=== PATIENT | male | born 1965 ===

== ENCOUNTER 2021-02-02 12:45 | Emergency (ER) | payer SELFPAY ==
[2021-02-02] MEDS ORDERED: levETIRAcetam 500 MG Tab PO ONE (12:49)
--- NOTE | 2021-02-02 13:08 | EDM.PDOCBH ---
ED HPI GENERAL MEDICAL PROBLEM - General Chief Complaint: Drug or Alcohol Abuse Stated Complaint: ALCOHOL WITHDRAWAL Time Seen by Provider: 02/02/21 13:06 Source of Information: Reports: Patient, RN, RN Notes Reviewed, Other (Marlys Ng) History Limitations: Reports: No Limitations - History of Present Illness INITIAL COMMENTS - FREE TEXT/NARRATIVE: Pt sent to ER from detention by [facility] for medical screening. Pt denies acute illness or injury. He has Hx of TBI, seizure disorder, alcohol, and polysubstance abuse. Pt states he has been out of his medications for several days. He is from [place]. Pt states he was at the [facility], and left with a man who brought him to [place]. Then he became from the man, and drank a lot of alcohol with some woman, then ended up in detention. Denies suicidal or homicidal thought or plan. Onset: Unknown/Unsure Location: Reports: Generalized Generalized Pain Score (Numeric/FACES): 5 - Related Data Allergies Allergy/AdvReac Type Severity Reaction Status Date / Time No Known Allergies Allergy Verified 02/02/21 13:14 Home Meds: Home Meds . [Unable to Verify Home Med List] 02/02/21 [History] Past Medical History Neurological History: Reports: Seizure Psychiatric History: Reports: Addiction Social & Family History - Family History Family Medical History: Unobtainable - Alcohol Use Alcohol Use History: Yes Alcohol Use Frequency: Binges - Recreational Drug Use Recreational Drug Use: Yes Drug Use in Last 12 Months: Yes Recreational Drug Type: Reports: Inhalants (Glues, Solvents, Aerosols), Marijuana/Hashish, Methamphetamine Recreational Drug Use Frequency: Daily - Living Situation & Occupation Living situation: Reports: Other (Homeless) Occupation: Unemployed ED ROS GENERAL - Review of Systems Review Of Systems: Comprehensive ROS is negative, except as noted in HPI. ED EXAM, BEHAVIORAL HEALTH - Physical Exam Exam: See Below Exam Limited By: No Limitations General Appearance: Alert, WD/WN, No Apparent Distress Eye Exam: Bilateral Eye: Normal Inspection Nose: Normal Inspection Throat/Mouth: Normal Inspection Head: Atraumatic, Normocephalic Neck: Normal Inspection Respiratory/Chest: No Respiratory Distress, Lungs Clear, Normal Breath Sounds, No Accessory Muscle Use, Chest Non-Tender Cardiovascular: Regular Rate, Rhythm GI/Abdominal: Normal Bowel Sounds, Soft, Non-Tender Back Exam: Normal Inspection Extremities: Normal Inspection Neurological: Alert, CN II-XII Intact, Normal Gait, No Motor/Sensory Deficits, Oriented x 3 Psychiatric: Normal Mood, Oriented, Poor Eye Contact. No: Homicidal Thoughts, Suicidal Plan, Suicidal Thoughts, Auditory Hallucinations, Visual Hallucinations Skin Exam: Warm, Dry, Intact, Normal color, No rash COURSE, BEHAVIORAL HEALTH COMP - Course Vital Signs: Last Vital Signs Temp 99.1 F 02/02/21 13:10 Pulse 103 H 02/02/21 13:10 Resp 14 02/02/21 13:10 BP 155/103 H 02/02/21 13:10 Pulse Ox 100 02/02/21 13:10 Orders, Labs, Meds: Active Orders 24 hr Category Date Time Status DRUG SCREEN URINE BIORAD [URCHEM] Stat Lab 02/02/21 13:15 Received UA W/MICROSCOPIC [URIN] Stat Lab 02/02/21 13:15 Results Laboratory Tests 02/02/21 02/02/21 02/02/21 Range/Units 13:05 13:05 13:05 WBC 6.9 (5.0-10.0) 10^3/uL RBC 5.27 (4.6-6.2) 10^6/uL Hgb 14.8 (14.0-18.0) g/dL Hct 44.4 (40.0-54.0) % MCV 84.3 (80-100) fL MCH 28.1 (27.0-34.0) pg MCHC 33.3 (33.0-35.0) g/dL Plt Count 201 (150-450) 10^3/uL Neut % (Auto) 84.2 H (42.2-75.2) % Lymph % (Auto) 9.4 L (20.5-50.1) % [place] % (Auto) 5.8 (2-8) % Eos % (Auto) 0.3 L (1.0-3.0) % Baso % (Auto) 0.3 (0.0-1.0) % Sodium 142 (136-145) mmol/L Potassium 3.8 (3.5-5.1) mmol/L Chloride 102 (98-107) mmol/L Carbon Dioxide 27 (21-32) mmol/L Anion Gap 16.8 H (7-13) mEq/L BUN 11 (7-18) mg/dL Creatinine 0.98 (0.70-1.30) mg/dL Est Cr Clr Drug Dosing TNP Estimated GFR (MDRD) > 60 BUN/Creatinine Ratio 11.2 (No establ ref range) Glucose 102 H (70-99) mg/dL Calcium 9.3 (8.5-10.1) mg/dL Magnesium 1.8 (1.8-2.4) mg/dL Total Bilirubin 1.5 H (0.2-1.0) mg/dL AST 101 H (15-37) U/L ALT 102 H (16-63) U/L Alkaline Phosphatase 72 (46-116) U/L Total Protein 8.7 H (6.4-8.2) g/dL Albumin 4.6 (3.4-5.0) g/dL Globulin 4.1 Albumin/Globulin Ratio 1.1 Urine Color (YELLOW) Urine Appearance (CLEAR) Urine pH (5.0-9.0) Ur Specific [place] (1.005-1.030) Urine Protein (NEGATIVE) Urine Glucose (UA) (NEGATIVE) Urine Ketones (NEGATIVE) Urine Occult Blood (NEGATIVE) Urine Nitrite (NEGATIVE) Urine Bilirubin (NEGATIVE) Urine Urobilinogen (0.2-1.0) mg/dL Ur Leukocyte Esterase (NEGATIVE) Salicylates < 2.8 L (2.8-20(Therapeutic)) mg/dL Acetaminophen 0 L (10-30 (Therapeutic)) ug/mL Ethyl Alcohol 3 (0) mg/dL 02/02/21 Range/Units 13:15 WBC (5.0-10.0) 10^3/uL RBC (4.6-6.2) 10^6/uL Hgb (14.0-18.0) g/dL Hct (40.0-54.0) % MCV (80-100) fL MCH (27.0-34.0) pg MCHC (33.0-35.0) g/dL Plt Count (150-450) 10^3/uL Neut % (Auto) (42.2-75.2) % Lymph % (Auto) (20.5-50.1) % [place] % (Auto) (2-8) % Eos % (Auto) (1.0-3.0) % Baso % (Auto) (0.0-1.0) % Sodium (136-145) mmol/L Potassium (3.5-5.1) mmol/L Chloride (98-107) mmol/L Carbon Dioxide (21-32) mmol/L Anion Gap (7-13) mEq/L BUN (7-18) mg/dL Creatinine (0.70-1.30) mg/dL Est Cr Clr Drug Dosing Estimated GFR (MDRD) BUN/Creatinine Ratio (No establ ref range) Glucose (70-99) mg/dL Calcium (8.5-10.1) mg/dL Magnesium (1.8-2.4) mg/dL Total Bilirubin (0.2-1.0) mg/dL AST (15-37) U/L ALT (16-63) U/L Alkaline Phosphatase (46-116) U/L Total Protein (6.4-8.2) g/dL Albumin (3.4-5.0) g/dL Globulin Albumin/Globulin Ratio Urine Color Dark yellow (YELLOW) Urine Appearance Clear (CLEAR) Urine pH 7.0 (5.0-9.0) Ur Specific [place] 1.025 (1.005-1.030) Urine Protein 100 H (NEGATIVE) Urine Glucose (UA) Negative (NEGATIVE) Urine Ketones 40 H (NEGATIVE) Urine Occult Blood Negative (NEGATIVE) Urine Nitrite Negative (NEGATIVE) Urine Bilirubin Small H (NEGATIVE) Urine Urobilinogen 4.0 H (0.2-1.0) mg/dL Ur Leukocyte Esterase Negative (NEGATIVE) Salicylates (2.8-20(Therapeutic)) mg/dL Acetaminophen (10-30 (Therapeutic)) ug/mL Ethyl Alcohol (0) mg/dL Medications Discontinued Medications Generic Name Dose Route Start Last Admin Trade Name Freq PRN Reason Stop Dose Admin Levetiracetam 1,000 mg 02/02/21 12:49 Levetiracetam 500 Mg Tab PO 02/02/21 12:50 ONETIME ONE Medical Clearance: 02/02/21 14:27 Medically clear for discharge to the [facility]. Departure - Departure Time of Disposition: 14:28 Disposition: Home, Self-Care 01 Condition: Good Clinical Impression: Seizure disorder, Alcohol abuse, Drug abuse - Discharge Information *PRESCRIPTION DRUG MONITORING PROGRAM REVIEWED*: Not Applicable *COPY OF PRESCRIPTION DRUG MONITORING REPORT IN PATIENT RACHEL: Not Applicable Instructions: Epilepsy, [id number], Substance Use Disorder and Mental Illness, Alcohol Use Disorder Forms: ED Department Discharge Additional Instructions: Rx: Keppra 1000mg Rx: Paxil 40mg Follow up in clinic next week for medication management. Sepsis Event Note (ED) - Focused Exam Vital Signs: Vital Signs Temp Pulse Resp BP Pulse Ox 02/02/21 13:10 99.1 F 103 H 14 155/103 H 100 - My Orders Last 24 Hours: My Active Orders 02/02/21 13:15 DRUG SCREEN URINE BIORAD [URCHEM] Stat UA W/MICROSCOPIC [URIN] Stat - Assessment/Plan Last 24 Hours: My Active Orders 02/02/21 13:15 DRUG SCREEN URINE BIORAD [URCHEM] Stat UA W/MICROSCOPIC [URIN] Stat
[2021-02-02 13:35] LABS: ANION GAP 16.8 mEq/L (7-13); CHLORIDE,CL 102 mmol/L (98-107); SODIUM,NA 142 mmol/L (136-145)
[2021-02-02 14:18] LABS: ACETAMINOPHEN 0 ug/mL (10-30 (Therapeutic))
== END 2021-02-02 14:20 | disposition home or self-care (01) ==
LOC: DL.ED 12:45
DX: G40.909 Epilepsy, unspecified, not intractable, without status epilepticus (principal); F10.10 Alcohol abuse, uncomplicated; F19.10 Other psychoactive substance abuse, uncomplicated
CPT/HCPCS: 36415; 80053; 80143; 80179; 80305-QW; 80307; 81001; 83735; 85025; 99283; 99284; A9270-GY

== ENCOUNTER 2021-02-07 20:30 | Emergency (ER) | payer SELFPAY ==
[~2021-02-07 20:30] MED LIST: Sodium Chloride 0.9% 1,000 ML IV ONE
[2021-02-07] MEDS ORDERED: levETIRAcetam 500 MG Tab PO ONE (20:54)
[2021-02-07 21:06] LABS: ANION GAP 21.7 mEq/L (7-13); CHLORIDE,CL 101 mmol/L (98-107); SODIUM,NA 141 mmol/L (136-145)
--- NOTE | 2021-02-07 21:33 | EDM.PDOC ---
ED HPI GENERAL MEDICAL PROBLEM - General Chief Complaint: Syncope Time Seen by Provider: 02/07/21 20:50 Source of Information: Reports: Patient, EMS History Limitations: Reports: No Limitations - History of Present Illness INITIAL COMMENTS - FREE TEXT/NARRATIVE: ED via [facility], patient found lying on side of road possible seizure. Patient reports seizure disorder has not been taking medications. Lives in Care Home in [facility]. States picked up by friend last week and drove here and left , Attempting to hitch hike way home today. Denies ETOH today, Some yesterday. Was seen in ED on 02/02 with seizure. Face/Facial Pain Score (Numeric/FACES): 8 - Related Data Allergies Allergy/AdvReac Type Severity Reaction Status Date / Time No Known Allergies Allergy Verified 02/07/21 21:48 Home Meds: Home Meds . [Unable to Verify Home Med List] 02/02/21 [History] Past Medical History Cardiovascular History: Reports: Hypertension Neurological History: Reports: Seizure, Other (See Below) Other Neuro History: TBI Psychiatric History: Reports: Addiction Social & Family History - Family History Family Medical History: Unobtainable - Caffeine Use Caffeine Use: Reports: Coffee, Soda, Tea - Living Situation & Occupation Living situation: Reports: Other (Homeless) Occupation: Unemployed ED ROS GENERAL - Review of Systems Review Of Systems: Comprehensive ROS is negative, except as noted in HPI. - Physical Exam Exam: See Below Exam Limited By: No Limitations General Appearance: Alert, No Apparent Distress, Other Eye Exam: Bilateral Eye: EOMI Ears: Normal External Exam Nose: Normal Inspection Throat/Mouth: Normal Inspection Head Exam: Atraumatic, Normocephalic Neck: Normal Inspection Respiratory/Chest: No Respiratory Distress, Lungs Clear, Normal Breath Sounds GI/Abdominal: Normal Bowel Sounds, Soft Neuro Exam (Abbreviated): Alert, Oriented, Memory Loss Recent Events. No: No Motor/Sensory Deficits, Disoriented, Slow to Respond Back Exam: Full Range of Motion Extremities: No: Limited Range of Motion Skin Exam: Warm, Dry, Intact, Other (Sunburn to face upper arms) Course - Vital Signs Last Recorded V/S: Last Vital Signs Temp 98.8 F 02/07/21 20:44 Pulse 97 02/07/21 20:44 Resp 18 02/07/21 20:44 BP 153/80 H 02/07/21 20:44 Pulse Ox 100 06/15/21 20:44 - Orders/Labs/Meds Labs: Laboratory Tests 02/07/21 02/07/21 Range/Units 20:35 20:35 WBC 5.3 (5.0-10.0) 10^3/uL RBC 4.81 (4.6-6.2) 10^6/uL Hgb 13.6 L (14.0-18.0) g/dL Hct 40.7 (40.0-54.0) % MCV 84.6 (80-100) fL MCH 28.3 (27.0-34.0) pg MCHC 33.4 (33.0-35.0) g/dL Plt Count 184 (150-450) 10^3/uL Neut % (Auto) 72.7 (42.2-75.2) % Lymph % (Auto) 13.9 L (20.5-50.1) % [place] % (Auto) 12.6 H (2-8) % Eos % (Auto) 0.4 L (1.0-3.0) % Baso % (Auto) 0.4 (0.0-1.0) % Sodium 141 (136-145) mmol/L Potassium 3.7 (3.5-5.1) mmol/L Chloride 101 (98-107) mmol/L Carbon Dioxide 22 (21-32) mmol/L Anion Gap 21.7 H (7-13) mEq/L BUN 24 H (7-18) mg/dL Creatinine 1.24 (0.70-1.30) mg/dL Est Cr Clr Drug Dosing 73.38 mL/min Estimated GFR (MDRD) > 60 BUN/Creatinine Ratio 19.4 (No establ ref range) Glucose 70 (70-99) mg/dL Calcium 9.0 (8.5-10.1) mg/dL Magnesium 2.1 (1.8-2.4) mg/dL Total Bilirubin 1.7 H (0.2-1.0) mg/dL AST 70 H (15-37) U/L ALT 145 H (16-63) U/L Alkaline Phosphatase 74 (46-116) U/L Creatine Kinase 263 (39-308) U/L Total Protein 7.9 (6.4-8.2) g/dL Albumin 4.3 (3.4-5.0) g/dL Globulin 3.6 g/dL Albumin/Globulin Ratio 1.19 Ethyl Alcohol < 3 (0) mg/dL Meds: Medications Discontinued Medications Generic Name Dose Route Start Last Admin Trade Name Pennie PRN Reason Stop Dose Admin Sodium Chloride 1,000 mls @ 500 mls/hr 02/07/21 20:29 02/07/21 20:42 Normal Saline IV 02/07/21 22:28 500 mls/hr .BOLUS ONE Administration Levetiracetam 1,000 mg 02/07/21 20:54 02/07/21 21:00 Levetiracetam 500 Mg Tab PO 02/07/21 20:55 1,000 mg ONETIME ONE Administration - Re-Assessments/Exams Free Text/Narrative Re-Assessment/Exam: Difficulty finding discharge placement for patient. He has had two train tickets purchased for him by [employer] and missed both. He was put up at [facility] already for homeless placement. Departure - Departure Time of Disposition: 22:48 Disposition: DC/Tfer to Other 70 Condition: Good Clinical Impression: Seizure disorder, Noncompliance Sun exposure, mild Qualifiers: Encounter type: initial encounter Qualified Code(s): X32.XXXA - Exposure to sunlight, initial encounter - Discharge Information *PRESCRIPTION DRUG MONITORING PROGRAM REVIEWED*: No *COPY OF PRESCRIPTION DRUG MONITORING REPORT IN PATIENT RACHEL: No Referrals: Wisam Bryant [Primary Care Provider] - Forms: ED Department Discharge Additional Instructions: follow up with Human Services Dont drink stay hydrated follow up with services to get back to home area.
== END 2021-02-07 23:50 | disposition other institution (70) ==
LOC: DL.ED 20:30
DX: G40.909 Epilepsy, unspecified, not intractable, without status epilepticus (principal); Z91.19 Patient's noncompliance with other medical treatment and regimen; I10 Essential (primary) hypertension; X32.XXXA Exposure to sunlight, initial encounter
CPT/HCPCS: 36415; 80053; 80307; 82550; 83735; 85025; 99283; 99284; A9270-GY; J7030